=== PATIENT | male | born 1930 | race Caucasian/White ===

== ENCOUNTER 2017-03-29 14:25 | Inpatient (IN) | payer MEDICARE ==
[~2017-03-29] VITALS: Ht 176.5 cm; Wt 74.3 kg
[2017-04-01] MEDS ORDERED: PROT40TA PO (10:10)
[2017-04-01] MEDS ORDERED: VITA100064 PO (10:18)
[2017-04-01] MEDS ORDERED: ASPI81CH CHEW (10:19)
[2017-04-01] MEDS ORDERED: AMLO5TAB2 PO (10:19)
[2017-04-01] MEDS ORDERED: ATOR20TA15 PO (10:19)
[2017-04-01] MEDS ORDERED: TIMO0.5S30 LEFT EYE (10:20)
[2017-04-01] MEDS ORDERED: AMLO2.5T PO (10:20)
[2017-04-01] MEDS ORDERED: ADVA250A INH (10:21)
[2017-04-15] MEDS ORDERED: INSULIN HUMAN REGULAR 1,000 UNITS/10 ML VIAL SQ PRN (08:30)
[2017-04-15] MEDS ORDERED: METOPROLOL TARTRATE 25 MG TAB PO PRN (08:30)
[2017-04-15] MEDS ORDERED: CHLORHEXIDINE GLUCONATE 2 % 1 PACK (2 CLOTHS) TOPICAL PRN (08:30)
[2017-04-15] MEDS ORDERED: CHLORHEXIDINE GLUCONATE 4% SOLN 120 ML BTL TOPICAL SCH (08:30)
[2017-04-15] MEDS ORDERED: SODIUM CHLORIDE 0.9% IV SCH ×4 (08:30)
[2017-04-15] MEDS ORDERED: TRANEXAMIC ACID IV SCH ×4 (08:30)
[2017-04-15] MEDS ORDERED: EXPAREL PERI-ARTICULAR INJECTION (TOTAL VOL. 100 ML) P-ARTICULR SCH ×2 (08:30)
[2017-04-15] MEDS ORDERED: SODIUM CHLORID 0.9% 500 ML IV PRN (08:30)
[2017-04-15] MEDS ORDERED: POVIDONE IODINE 5% (ANTISEPSIS KIT) 4 APPLICATIONS EACH NARE PRN (08:30)
[2017-04-15] MEDS ORDERED: ceFAZolin 2 GM PREMIX 50 ML IV SCH (08:30)
[2017-04-15] MEDS ORDERED: LACTATED RINGER'S 1000 ML IV PRN (08:30)
[2017-04-15 08:58] VITALS: BP 128/65; PULSE 50; RESP 16; TEMP 97.8; O2SAT 96
[2017-04-15] MEDS ORDERED: GENTAMICIN SULFATE 80 MG/2 ML VIAL ONE (09:04)
[2017-04-15] MEDS ORDERED: FAMOTIDINE 20 MG/2 ML VIAL ONE (10:04)
[2017-04-15] MEDS ORDERED: MIDAZOLAM HCL 2 MG/2 ML VIAL ONE (10:04)
[2017-04-15] MEDS ORDERED: ACETAMINOPHEN 1000 MG/100 ML VIAL IV ONE (10:08)
[2017-04-15] MEDS ORDERED: DEXAMETHASONE SOD PHOS 4 MG/ML VIAL ONE (10:09)
[2017-04-15] MEDS ORDERED: Post-op Orders (for Pharmacy) MISC XX ONE (10:45)
[2017-04-15] MEDS ORDERED: MORPHINE SULFATE 4 MG/ML INJ IV PUSH PRN (10:45)
[2017-04-15] MEDS ORDERED: ACETAMINOPHEN/HYDROcodone 325 MG/7.5 MG TAB PO PRN (10:45)
[2017-04-15] MEDS ORDERED: SODIUM CHLORIDE 0.9% FLUSH 5 ML FLUSH IVF PRN (10:45)
[2017-04-15] MEDS ORDERED: MAGNESIUM HYDROXIDE SUSP 30 ML CUP PO PRN (10:45)
[2017-04-15] MEDS ORDERED: ONDANSETRON HCL 4 MG/2 ML VIAL IVP PRN (10:45)
[2017-04-15] MEDS ORDERED: TRANEXAMIC ACID INJ 0 MG in SODIUM CHLORIDE 0.9% INJ 100 ML IV SCH (10:45)
[2017-04-15] MEDS ORDERED: ZOLPIDEM TARTRATE 5 MG TAB PO PRN (10:45)
[2017-04-15] MEDS ORDERED: BUPIVACAINE LIPOSOME PF 1.3% 20 ML VIAL ONE (12:30)
[2017-04-15] MEDS ORDERED: DO NOT ADM ANY ANTICOAGULANT DRUGS PRN (13:30)
[2017-04-15] MEDS: KETOROLAC TROMETHAMINE 30 MG/ML (IVP) VIAL IVP SCH ×2 (13:55→18:35)
[2017-04-15] MEDS: LACTATED RINGER'S 1000 ML INJ 1,000 ML IV SCH ×2 (13:55→23:30)
[2017-04-15] MEDS ORDERED: PROPOFOL 200 MG/20 ML AMP IV ONE (14:11)
[2017-04-15] MEDS ORDERED: ONDANSETRON HCL 4 MG/2 ML VIAL IV PUSH ONE (14:12)
[2017-04-15] MEDS ORDERED: LACTATED RINGER'S 1000 ML INJ 1,000 ML IV ONE (14:12)
--- NOTE | 2017-04-15 14:27 | RADRPT ---
EXAM DATE/TIME: 04/15/2017 13:47 [place] COMPARISON: No previous studies available for comparison. INDICATIONS : Post op left knee. MEDICAL HISTORY : None. SURGICAL HISTORY : None. ENCOUNTER: Initial ACUITY: 1 day PAIN SCORE: Non-responsive. LOCATION: Left knee. FINDINGS: Two view examination of the left knee demonstrates expected postoperative features of left knee arthr oplasty. The thoracic components are in anatomic alignment. No significant acute bony fracture. Surgi bhaskar drains are in place. CONCLUSION: 1. Expected postoperative changes of left knee arthroplasty without evidence for significant acute [place] fracture. Allan Rodney MD on April 15, 2017 at 14:24 Board Certified Radiologist. This report was verified electronically.
[2017-04-15 16:00] VITALS: BP 118/65; PULSE 72; RESP 16; TEMP 95.1; O2SAT 95
[2017-04-15] MEDS ORDERED: PILL SPLITTER OTHER PRN (16:00)
--- NOTE | 2017-04-15 16:11 | PD.CONS ---
HPI Service [facility] Consult Requested By Gladys Reason for Consult Medical management Primary Care Physician Emery Hutchins M.D. Diagnoses: History of Present Illness This an 86-year-old elderly male who was admitted for elective surgery. Significant past medical history of hypertension, known ascending aortic aneurysm that is followed by feeder/folder Dr. Whyte, valvular disease, mitral regurgitation, SVT and prior ablation, prostate cancer. Patient underwent a left total knee arthroplasty. He tolerated procedure well. Pain is well- controlled. No recent chest pain, no shortness of breath. Hospitalist services are requested for medical management Review of Systems Constitutional: DENIES: Diaphoretic episodes, Fatigue, Fever, Weight gain, Weight loss, Chills, Dizziness, Change in appetite, Night Sweats Endocrine: DENIES: Heat/cold intolerance, Polydipsia, Polyuria, Polyphagia Eyes: DENIES: Blurred vision, Diplopia, Eye inflammation, Eye pain, Vision loss , Photosensitivity, Double Vision Ears, nose, mouth, throat: DENIES: Tinnitus, Hearing loss, Vertigo, Nasal discharge, Oral lesions, Throat pain, Hoarseness, Ear Pain, Running Nose, Epistaxis, Sinus Pain, Toothache, Odynophagia Respiratory: DENIES: Apneas, Cough, Snoring, Wheezing, Hemoptysis, Sputum production, Shortness of breath Cardiovascular: DENIES: Chest pain, Palpitations, Syncope, Dyspnea on Exertion , PND, Lower Extremity Edema, Orthopnea, Claudication Gastrointestinal: DENIES: Abdominal pain, Black stools, Bloody stools, Constipation, Diarrhea, Nausea, Vomiting, Difficulty Swallowing, Anorexia Genitourinary: DENIES: Sexual dysfunction, Urinary frequency, Urinary incontinence, Urgency, Hematuria, Dysuria, Nocturia, Penile Discharge, Testicular Pain, Testicular Swelling Musculoskeletal: COMPLAINS OF: Joint pain, DENIES: Muscle aches, Stiffness, Joint Swelling, Back pain, Neck pain Integumentary: DENIES: Abnormal pigmentation, Nail changes, Pruritus, Rash Hematologic/lymphatic: DENIES: Bruising, Lymphadenopathy Immunologic/allergic: DENIES: Eczema, Urticaria Neurologic: DENIES: Abnormal gait, Headache, Localized weakness, Paresthesias, Seizures, Speech Problems, Tremor, Poor Balance Psychiatric: DENIES: Anxiety, Confusion, Mood changes, Depression, Hallucinations, Agitation, Suicidal Ideation, Homicidal Ideation, Delusions Past Family Social History Past Medical History Valvular disease, known to have mitral regurgitation Ascending aneurysm, followed with ultrasounds per Dr. Whyte Osteoarthritis Hypertension Hyperlipidemia SVT, had ablation Prostate cancer, had a radical prostatectomy After prostate cancer, had Elevated PSA, was treated with radiation PUD Incontinence Past Surgical History Left meniscectomy Radical prostatectomy Prostate biopsy Reported Medications Reported Meds & Active Scripts Active Reported Advair Diskus Inh (Fluticasone-Salmeterol Inh) 250-50 Mcg/Blist Aer 1 Puff INH BID Rinse mouth after use. Timolol Opth Drops 0.5 % Soln 1 Drop LEFT EYE DAILY Amlodipine (Amlodipine Besylate) 2.5 Mg Tab 2.5 Mg PO HS Amlodipine (Amlodipine Besylate) 5 Mg Tab 5 Mg PO HS Atorvastatin (Atorvastatin Calcium) 20 Mg Tab 20 Mg PO HS Aspirin 81 Mg Chew 81 Mg CHEW DAILY Vitamin D (Cholecalciferol) 1,000 Unit Tab 1,000 Units PO DAILY Protonix (Pantoprazole Sodium) 40 Mg Tab 40 Mg PO DAILY Allergies: Coded Allergies: No Known Allergies (Unverified , 04/15/17) Active Ordered Medications Inpatient Medications Acetaminophen/ Hydrocodone Bitart ([place] 7.5-325 Mg) 2 tab Q4H PRN PO PAIN SCALE 5 TO 10; Start 04/15/17 at 10:45 Amlodipine Besylate (Norvasc) 7.5 mg HS PO ; Start 04/15/17 at 21:00 Aspirin (Ecotrin Ec) 81 mg BID PO ; Start 04/16/17 at 12:00 Atorvastatin Calcium (Lipitor) 20 mg HS PO ; Start 04/15/17 at 21:00 Budesonide/ Formoterol Fumarate (Symbicort 160-4.5 Inh) 2 puff BID INH ; Start 04/15/17 at 21:00 Bupivacaine Liposome 20 ml/ Sodium Chloride 100 ml @ 200 mls/hr ONCE P- ARTICULR Last administered on 04/15/17 11:05; Start 04/15/17 at 08:30; Stop 04/16 at 08:29 Cefazolin Sodium/ Dextrose 50 ml @ 100 mls/hr OUTCOMES ANALYST IV Last administered on 04/15/17 10:57; Start 04/15/17 at 08:30; Stop 04/15/17 at 13:25; Status DC Cefazolin Sodium/ Sodium Chloride (Ancef Inj/NS Inj) 100 ml @ 200 mls/hr Q6H IV ; Start 04/15/17 at 18:00; Stop 04/16/17 at 06:29 Chlorhexidine Gluconate (Chlorhexidine 2% Cloth) 3 pack OUTCOMES ANALYST PRN TOPICAL SEE LABEL COMMENTS; Start 04/15/17 at 08:30; Stop 04/18/17 at 08:29 Chlorhexidine Gluconate 1 applic 1 applic ONCE TOPICAL ; Start 04/15/17 at 08:30 ; Stop 04/18/17 at 08:29 Cholecalciferol (Vitamin D3) 1,000 units DAILY PO ; Start 04/16/17 at 09:00 Docusate Sodium (Colace) 100 mg BID PO ; Start 04/16/17 at 21:00 Insulin Human Regular See Protocol Table ... OUTCOMES ANALYST PRN SQ SEE PROTOCOL TABLE ; Start 04/15/17 at 08:30; Stop 04/18/17 at 08:29 IV Flush (NS Flush) 2 ml UNSCH PRN IVF FLUSH AFTER USING IV ACCESS; Start at 10:45 IV Flush 2 ml 2 ml BID IVF ; Start 04/15/17 at 21:00 Ketorolac Tromethamine (Toradol Inj) 15 mg Q6H IVP Last administered on 13:55; Start 04/15/17 at 12:00; Stop 04/17/17 at 06:01 Lactated Ringer's (Lr 1000 ml Inj) 1,000 ml @ 80 mls/hr [id number] IV Last administered on 04/15/17 13:55; Start 04/15/17 at 11:00 Magnesium Hydroxide (Milk Of Magnesia Liq) 30 ml DAILY PRN PO CONSTIPATION; Start 04/15/17 at 10:45 Metoprolol Tartrate (Lopressor) 25 mg OUTCOMES ANALYST PRN PO SEE LABEL COMMENTS; Start 04/15/17 at 08:30; Stop 04/18/17 at 08:29 Miscellaneous (Pill Splitter) 1 ea UNSCH PRN OTHER SEE LABEL COMMENTS; Start at 16:00 Miscellaneous Information ALL NURSING DEPARTME... UNSCH PRN .XX SEE LABEL COMMENTS; Start 04/15/17 at 13:30; Stop 04/16/17 at 13:29 Miscellaneous Information (Post-op Orders (for Pharmacy)) STAT ONCE XX ; Start 04/15/17 at 10:45; Stop 04/15/17 at 11:12; Status DC Morphine Sulfate (Morphine Inj) 4 mg Q3H PRN IV PUSH BREAKTHROUGH PAIN; Start 04/15/17 at 10:45 Ondansetron HCl (Zofran Inj) 4 mg Q6H PRN IVP NAUSEA OR VOMITING; Start at 10:45 Pantoprazole Sodium (Protonix) 40 mg DAILY PO ; Start 04/16/17 at 09:00 Povidone Iodine (Betadine 5% Antisepsis Kit) 1 applic OUTCOMES ANALYST PRN EACH NARE SEE LABEL COMMENTS Last administered on 04/15/17 09:00; Start 04/15/17 at 08:30; Stop 04/18/17 at 08:29 Sodium Chloride (NS 500 ml Inj) 500 ml @ 30 mls/hr [id number] PRN IV SEE LABEL COMMENTS; Start 04/15/17 at 08:30; Stop 04/18/17 at 08:29 Timolol Maleate (Timoptic 0.5% Opt Soln) 1 drop DAILY LEFT EYE ; Start 04/16/17 at 09:00 Tranexamic Acid 736 mg/Sodium Chloride 107.36 ml @ 200 mls/ hr ONCE IV Last administered on 04/15/17 14:20; Start 04/15/17 at 08:30; Stop 04/16/17 at 08:29 Zolpidem Tartrate (Ambien) 5 mg HS PRN PO SLEEP; Start 04/15/17 at 10:45 Family History Reviewed, noncontributory Social History Patient is , lives with . Retired anesthesiologist. Quit smoking 34 years ago. Occasionally drinks 2 glasses of wine with dinner. No substance abuse. Very active, plays golf Physical Exam Vital Signs Vital Signs Date Time Temp Pulse Resp B/P Pulse Ox O2 Delivery O2 Flow Rate FiO2 04/15/17 14:30 64 16 114/64 95 Room Air 04/15/17 14:15 64 16 117/62 94 Room Air 04/15/17 14:00 64 16 113/64 94 Room Air 04/15/17 13:45 60 16 113/56 94 Room Air 04/15/17 13:30 62 16 112/63 94 Room Air 04/15/17 13:27 97.3 60 16 114/57 94 Room Air 04/15/17 08:58 97.8 50 16 128/65 96 Physical Exam GENERAL: This is a well-nourished, well-developed patient, in no apparent distress. SKIN: No rashes, ecchymoses or lesions. Cool and dry. HEAD: Atraumatic. Normocephalic. No temporal or scalp tenderness. EYES: Pupils equal round and reactive. Extraocular motions intact. No scleral icterus. No injection or drainage. ENT: Nose without bleeding, purulent drainage or septal hematoma. Throat without erythema, tonsillar hypertrophy or exudate. Uvula midline. Airway patent. NECK: Trachea midline. No JVD or lymphadenopathy. Supple, nontender, no meningeal signs. CARDIOVASCULAR: S1 and S2, murmur noted, 2/6 RESPIRATORY: Clear to auscultation. Breath sounds equal bilaterally. No wheezes , rales, or rhonchi. GASTROINTESTINAL: Abdomen soft, non-tender, nondistended. No hepato-splenomegaly , or palpable masses. No guarding. MUSCULOSKELETAL: Extremities without clubbing, cyanosis, or edema. No joint tenderness, effusion, or edema noted. No calf tenderness. Negative Homans sign bilaterally. Left knee with bulky dressing. Left pedal pulse 2+. Right pedal pulse 2+. Able to dorsiflex left foot. Intact sensation to left foot. No other joint abnormality. NEUROLOGICAL: Awake, alert oriented 3. Hard of hearing. No focal deficits. Laboratory Laboratory Tests Test 04/15/17 08:57 Blood Type O NEGATIVE Antibody Screen NEGATIVE Blood Bank Comment Imaging Last Impressions Knee X-Ray 04/15/17 1035 Signed Impressions: Service Date/Time: Saturday, April 15, 2017 13:47 - CONCLUSION: 1. Expected postoperative changes of left knee arthroplasty without evidence for significant acute bony fracture. Allan Rodney MD A/P Diagnosis: (1) Primary osteoarthritis of left knee (2) Status post total left knee replacement (3) Heartburn (4) Murmur (5) HTN (hypertension) (6) Ascending aortic aneurysm (7) Valvular disease Assessment and Plan Thank you for this consultation, we will assist with medical management History of OA of left knee, status post left total knee replacement. -Continue with postoperative orthopedic care Aspirin for DVT prophylaxis per orthopedic orders. Continue with pain management Bowel regimen Physical therapy History of known aortic ascending aneurysm, it is stable. It is less than 5 cm Hypertension Valvular disease, mitral regurgitation Control blood pressure, resume Norvasc. Heartburn Continue with PPI Continue with aspirin and teds for DVT prophylaxis PPI for GI prophylaxis Repeat labs in the morning Plan of care has been discussed with the patient, attending and registered nurse. Further management of the patient will be dependent on the hospital course This patient was seen by myself and Dr. Gómez, this H&P is written on her behalf Problem Qualifiers (1) HTN (hypertension): Qualified Code: I10 - Essential hypertension Jeniffer Waters Apr 15, 2017 16:11
[2017-04-15 17:55] VITALS: O2SAT 95
[2017-04-15 20:21] VITALS: BP 134/67; PULSE 72; RESP 16; TEMP 97.2; O2SAT 95
[2017-04-15] MEDS: amLODIPine BESYLATE 5 MG TAB PO SCH (20:57)
[2017-04-15] MEDS: ATORVASTATIN 20 MG TAB PO SCH (20:57)
[2017-04-15] MEDS ORDERED: amLODIPine BESYLATE 5 MG TAB PO SCH (21:00)
[2017-04-15] MEDS: SODIUM CHLORIDE 0.9% FLUSH 5 ML FLUSH IVF SCH (21:00)
[2017-04-15] MEDS: BUDESONIDE-FORMOTEROL 160/4.5 MCG INHALER INH SCH (21:18)
--- NOTE | 2017-04-15 21:29 | HHI.FF ---
Face to Face Verification Diagnosis: (1) Status post total left knee replacement Physical Therapy Gait training Knee: Total knee, Protocol: Left, Gait training, Full weight bearing Left LE Weight Bearing: WB as tolerated Left LE Range of Motion: Active ROM (AROM, AAROM, PROM, PRE. ROM goal is 0 to 135 degrees.) Nursing Nursing: Dressing changes Dressing Changes: Daily dressing change (Remove steristrips on postop day 14.) , Coverderm/Primapore I have seen patient Dudley Weber on 04/15/17. My clinical findings support the need for the requested home health care services because: Ltd mobility - disease progression Limited ability to care for self High risk of falls I certify that my clinical findings support that this patient is homebound because: Post-op weakness Unsteady gait/balance Unsafe to leave home unassisted Mady Graham MD ([facility]) Apr 15, 2017 21:29
[2017-04-15] MEDS: ACETAMINOPHEN/HYDROcodone 325 MG/7.5 MG TAB PO PRN (21:33)
[2017-04-16] VITALS: BP 101/62; PULSE 76; RESP 16; TEMP 97.1; O2SAT 95
[2017-04-16] MEDS: KETOROLAC TROMETHAMINE 30 MG/ML (IVP) VIAL IVP SCH ×4 (00:45→17:39)
[2017-04-16 04:00] VITALS: BP 106/62; PULSE 70; RESP 17; TEMP 97.1; O2SAT 95
--- NOTE | 2017-04-16 06:08 | PD.ORT.PN ---
Subjective Post Op Day #: 1 Subjective Remarks He is doing well. He had some pain when the block effect abated but is now comfortable. Range of Motion -5 to 85 degrees. Distance Walked 2 feet with PT. Objective Vitals Vital Signs Date Time Temp Pulse Resp B/P Pulse Ox O2 Delivery O2 Flow Rate FiO2 04/16/17 04:00 97.1 70 17 106/62 95 04/16/17 00:00 97.1 76 16 101/62 95 04/15/17 20:21 97.2 72 16 134/67 95 04/15/17 17:55 95 21 04/15/17 16:00 95.1 72 16 118/65 95 04/15/17 14:30 64 16 114/64 95 Room Air 04/15/17 14:15 64 16 117/62 94 Room Air 04/15/17 14:00 64 16 113/64 94 Room Air 04/15/17 13:45 60 16 113/56 94 Room Air 04/15/17 13:30 62 16 112/63 94 Room Air 04/15/17 13:27 97.3 60 16 114/57 94 Room Air 04/15/17 08:58 97.8 50 16 128/65 96 I/O 04/15/17 04/15/17 04/15/17 04/16/17 04/16/17 04/16/17 07:00 15:00 23:00 07:00 15:00 23:00 Intake Total 50 ml 480 ml 240 ml Output Total 70 ml 150 ml Balance -20 ml 330 ml 240 ml Intake Oral 480 ml 240 ml IV Total 50 ml Output Drainage Total 70 ml 150 ml # Voids 2 3 # Bowel Movements 0 0 Imaging Knee x-ray looks good. Last 24 hours Impressions Knee X-Ray 04/15/17 1035 Signed Impressions: Service Date/Time: Saturday, April 15, 2017 13:47 - CONCLUSION: 1. Expected postoperative changes of left knee arthroplasty without evidence for significant acute bony fracture. Allan Rodney MD Objective Remarks He is resting comfortably supine in bed in the CPM. The dressing is dry and intact. The neurovascular status is intact. Assessment & Plan Ortho Post Op Day #: 1 Problem List: (1) Status post total left knee replacement Plan: Continue postop care and PT. Assessment and Plan Condition: Good. Orthopaedically stable. DVT prophylaxis: ASA, TEDs, sequentials. Discharge plans: Home with HHC, possible CIR if needed. Has appointment. Rx: [place] 7.5/325. Mady Graham MD ([facility]) Apr 16, 2017 06:08
[2017-04-16 06:26] LABS: AUTOMATED NEUTROPHIL # 8.2 TH/MM3 (1.8-7.7); BASOPHIL % 0.2 % (0.0-2.0); HEMATOCRIT 34.1 % (39.0-51.0); HEMO FLAGS DIFF FINAL; MEAN CELL VOLUME 95.6 FL (80.0-100.0); MEAN CORPUSCULAR HEMOGLOBIN 31.8 PG (27.0-34.0); MEAN CORPUSCULAR HGB CONC 33.3 % (32.0-36.0); MONO % 9.8 % (0.0-8.0); PLATELET COUNT 227 TH/MM3 (150-450); RED BLOOD COUNT 3.56 MIL/MM3 (4.50-5.90); RED CELL DISTRIBUTION WIDTH 13.8 % (11.6-17.2); WHITE BLOOD COUNT 10.3 TH/MM3 (4.0-11.0)
[2017-04-16 06:51] LABS: BICARBONATE 26.2 MEQ/L (21.0-32.0); POTASSIUM 4.4 MEQ/L (3.5-5.1)
[2017-04-16 08:00] VITALS: BP 117/58; PULSE 72; RESP 16; TEMP 97.8; O2SAT 95
[2017-04-16] MEDS: PANTOPRAZOLE SOD 40 MG DELAYED RELEASE TAB PO SCH (08:05)
[2017-04-16] MEDS: CHOLECALCIFEROL (VIT D3) 1000 UNIT TAB PO SCH (08:05)
[2017-04-16] MEDS: SODIUM CHLORIDE 0.9% FLUSH 5 ML FLUSH IVF SCH ×2 (09:00→22:23)
[2017-04-16] MEDS: BUDESONIDE-FORMOTEROL 160/4.5 MCG INHALER INH SCH ×2 (09:00→22:22)
[2017-04-16] MEDS: TIMOLOL MALEATE 0.5% OPHT SOLN 5 ML BTL LEFT EYE SCH (09:00)
[2017-04-16] MEDS: ACETAMINOPHEN/HYDROcodone 325 MG/7.5 MG TAB PO PRN ×2 (09:42→22:24)
--- NOTE | 2017-04-16 10:41 | HHI.PR ---
Subjective Subjective Remarks Sitting up in chair, pain is well controlled No shortness of breath No Chest pain Afebrile No bowel movement yet Review of Systems Constitutional Constitutional Remarks 12 point review of systems completed, negative except as noted above Vitals/Results Intake & Output 04/15/17 04/15/17 04/16/17 15:00 23:00 07:00 Intake Total 50 ml 480 ml 240 ml Output Total 70 ml 150 ml 90 ml Balance -20 ml 330 ml 150 ml Intake Oral 480 ml 240 ml IV Total 50 ml Output Drainage Total 70 ml 150 ml 90 ml # Voids 2 3 # Bowel Movements 0 0 Vital Signs Vital Signs Date Time Temp Pulse Resp B/P Pulse Ox O2 Delivery O2 Flow Rate FiO2 04/16/17 09:36 21 04/16/17 08:00 97.8 72 16 117/58 95 04/16/17 04:00 97.1 70 17 106/62 95 04/16/17 00:00 97.1 76 16 101/62 95 04/15/17 20:21 97.2 72 16 134/67 95 04/15/17 17:55 95 21 04/15/17 16:00 95.1 72 16 118/65 95 04/15/17 14:30 64 16 114/64 95 Room Air 04/15/17 14:15 64 16 117/62 94 Room Air 04/15/17 14:00 64 16 113/64 94 Room Air 04/15/17 13:45 60 16 113/56 94 Room Air 04/15/17 13:30 62 16 112/63 94 Room Air 04/15/17 13:27 97.3 60 16 114/57 94 Room Air CBC/BMP: 04/16/17 0549 04/16/17 0549 Lab Results Laboratory Tests Test 04/16/17 05:49 White Blood Count 10.3 TH/MM3 Red Blood Count 3.56 MIL/MM3 Hemoglobin 11.3 GM/DL Hematocrit 34.1 % Mean Corpuscular Volume 95.6 FL Mean Corpuscular Hemoglobin 31.8 PG Mean Corpuscular Hemoglobin 33.3 % Concent Red Cell Distribution Width 13.8 % Platelet Count 227 TH/MM3 Mean Platelet Volume 8.4 FL Neutrophils (%) (Auto) 80.0 % Lymphocytes (%) (Auto) 10.0 % Monocytes (%) (Auto) 9.8 % Eosinophils (%) (Auto) 0.0 % Basophils (%) (Auto) 0.2 % Neutrophils # (Auto) 8.2 TH/MM3 Lymphocytes # (Auto) 1.0 TH/MM3 Monocytes # (Auto) 1.0 TH/MM3 Eosinophils # (Auto) 0.0 TH/MM3 Basophils # (Auto) 0.0 TH/MM3 CBC Comment DIFF FINAL Differential Comment Sodium Level 140 MEQ/L Potassium Level 4.4 MEQ/L Chloride Level 107 MEQ/L Carbon Dioxide Level 26.2 MEQ/L Anion Gap 7 MEQ/L Blood Urea Nitrogen 24 MG/DL Creatinine 1.04 MG/DL Estimat Glomerular Filtration 68 ML/MIN Rate Random Glucose 117 MG/DL Calcium Level 8.5 MG/DL Physical Exam General General Appearance: Well Developed, Well Nourished, No Acute Distress, Comfortable Eyes Eye Exam: Pupils Equal, Pupils Reactive Ears & Nose Ears & Nose Exam: Nasal Mucosa Gates Throat Throat Exam: Oral Mucosa Gates & Moist Neck Neck Exam: Neck Supple, Trachea Midline Pulmonary Resp Exam: Breath Sounds Equal, No Distress Cardiology CV Exam: Regular, Murmur Gastrointestinal/Abdomen GI Exam: Soft, Non-Tender, Bowel Sounds Present, Non-Distended Musculoskeletal MS Exam: Joints Intact MS Remarks Left leg with bulky dressing intact Integumentary Skin Exam: Warm, Dry Extremeties Extremities Exam: Pedal Pulses Palpable, Trace Edema Neurologic Neuro Exam: Alert, Awake, Oriented, Speech Clear, Moving All Extremities, No Focal Deficits Psychiatric Psych Exam: Appropriate Responses VTE Prophylaxis VTE Prophylaxis Device: TEDs VTE Remarks Aspirin Assessment/Plan Problem List: (1) Status post total left knee replacement (2) Heartburn (3) Murmur (4) HTN (hypertension) (5) Ascending aortic aneurysm (6) Valvular disease (7) Primary osteoarthritis of left knee Assessment/Plan History of OA of left knee, status post left total knee replacement. -Continue with postoperative orthopedic care Aspirin for DVT prophylaxis per orthopedic orders. Continue with pain management Bowel regimen Physical therapy History of known aortic ascending aneurysm, it is stable. It is less than 5 cm Hypertension Valvular disease, mitral regurgitation Control blood pressure, continue Norvasc. Heartburn Continue with PPI Continue with aspirin and teds for DVT prophylaxis PPI for GI prophylaxis Labs reviewed, H&H stable Discussed with Dr. Gómez Discussed with RN Discussed with patient This patient was seen by myself and Dr. Gómez, this note is written on her behalf Problem Qualifiers (1) HTN (hypertension): Qualified Code: I10 - Essential hypertension Jeniffer Waters Apr 16, 2017 10:41
--- NOTE | 2017-04-16 10:52 | MP ---
cc: Naren HADDAD. DATE OF SURGERY 04/15/2017 PREOPERATIVE DIAGNOSIS Primary osteoarthritis left knee. POSTOPERATIVE DIAGNOSIS Primary osteoarthritis left knee. OPERATION PERFORMED Left total knee arthroplasty with Larwill Triathlon prosthesis. SURGEON Mady Haddad MD ANESTHESIA Spinal with supplemental local. INDICATIONS AND FINDINGS This 86-year-old man has had problems with his left knee for several years. He had a medial meniscectomy many years ago. Subsequently he has found that he has had increasing pain with weightbearing and decreasing ambulation tolerances. He has difficulty ascending and descending stairs, standing from a seated position, feeling of giving-way and inability to fully extend his knee. He cannot take anti-inflammatory agents because of peptic ulcer disease. He has not responded to analgesics, activity modification, exercise and ambulatory aids. FINDINGS Physical findings showed genu varum with medial laxity. Osteophytes and crepitation on range of motion. The imaging studies showed severe osteoarthritis on x-ray going down to [id number] in the medial compartment with eburnation and osteophytes particularly in the medial compartment with some patellofemoral and lateral change. Operative findings showed findings consistent with the radiographic findings with there being loss of articular cartilage to [id number] with subchondral sclerosis in the medial compartment. There were patellofemoral and lateral osteophytes as well as degenerative change in both sites. PROSTHESIS USED A Larwill Triathlon prosthesis. The femoral component was a size six left cruciate-retaining component. The tibial baseplate was a Tritanium baseplate size 7. The spacer was a size 7 x 9-mm cruciate-retaining. The patella was a Titanium backed patella size 38-mm. PROCEDURE The patient was brought to the operating room and a spinal anesthetic was administered. The anesthesiologist indicated that he would to an adductor canal block at the conclusion of the procedure. The pneumatic tourniquet was applied to the left thigh. The limb was then prepped with alcohol, Hibiclens and Chloraprep and draped in the usual manner with the knee draped free. An appropriate time-out procedure was carried out. An anterior incision was made from three fingerbreadths above this the superior medial pole of the patella down to the tibial tubercle. Care was taken to leave an adequate skin bridge from his previous medial incision. The incision was then deepened through the subcutaneous tissues to the retinacular structures which were exposed medially and laterally. The medial retinacular incision was made from the superior medial pole of the patella down to the tibial tubercle and up into the quadriceps tendon splitting it longitudinally in the medial one-third. The patella was reflected. Medial and lateral dissection was carried out. Hemostasis was achieved with electrocautery throughout the procedure. The anterior cruciate ligament was excised. The lateral meniscectomy was initiated since he had previously had a subtotal medial meniscectomy. The posterior surface of the patella was exposed. Patella clamps were used to hold this. The posterior surface of the patella was excised using the oscillating saw. A patellar protector was applied. The patella was slipped into the lateral gutter. The femoral drill hole was made in the distal end of the femur and the tibial drill hole in the proximal end of the tibia. The distal femoral cutting guide and jig were assembled for a 5-degrees, 8-mm cut. The cutting block was stabilized with pins after positioning this appropriately. The jig was removed. The distal femoral cut was completed with the oscillating saw. Using epicondylar axis and Whitesides line as guides, the distal femoral sizing guide was positioned in place. Drill holes were made. The size was determined to be a size 6 femur. The distal femoral four-in-one cutting block was positioned in place and stabilized with pins. Anterior and posterior cuts were made followed by posterior and anterior chamfer cuts. Osteophytes were trimmed. A bone plug was placed in the distal end of the femur. Attention was directed to the tibia. The meniscectomies were completed. The proximal tibia was exposed. Proximal tibial cutting guide and jig were then assembled with an intermedullary guide initially. This was then positioned in place and the proximal tibial cutting guide was stabilized with pins. The jig was removed. The proximal tibial cut was completed with the oscillating saw. The tibial baseplate trial was positioned in place and appeared to be appropriate for a size 7. This was stabilized with pins. The 9-mm spacer was inserted. The femoral component was impacted into place and seated. The patella trial drill holes were made. The 38-mm patella trial was positioned in place. The knee was taken through a range of motion. There was some instability of the femur when the knee came to full flexion. It was determined to remove a little bit more posterior tibia. The trial implants were removed. The proximal tibial cutting guide was then positioned with slightly more posterior slope than previously using the extramedullary guide. The cut was then made with the oscillating saw. Further osteophytes were removed. With the proximal tibial cut made, the tibial baseplate was positioned in place and stabilized with pins. The spacer was inserted. The femoral component was inserted. The patella component was inserted. The knee was taken through a range of motion which was easily 250 degrees with better stability of the femur. The femoral component drill holes were made followed by removal of the component. The patella trial was removed. The tibial spacer was removed. The tibial punch was impacted through its guide. The tibial drill guide was then positioned in place. Local anesthesia was administered throughout the knee with Exparel. The tibial component was then impacted into place and seated appropriately. This appeared to be more anterior than had been expected, therefore this was removed. The tibial baseplate trial was positioned back in place and held with pins. The punch was impacted through its guide after using the saw to accentuate the cut. The drill guide was positioned in place and drill holes made again. The proximal tibia was then irrigated well with antibiotic solution. It was determined that cement would be used for the tibia at this time. The tibial cement was inserted using the cement gun to pressurize the cement. The tibial baseplate was impacted in placed and seated appropriately. Excess cement was trimmed. The tibial spacer was inserted. Using a second batch of cement the femoral component was cemented into place and seated appropriately. Excess cement was trimmed. The patella was inserted using the Tritanium patella. This seated appropriately. Drains were brought out the superior and lateral aspect of the suprapatellar pouch. The remainder of the Exparel was injected throughout the knee. The wound was then closed in layers using 0 Vicryl interrupted [id number] sutures for retinacular structures and fascial structures, 2-0 Vicryl interrupted simple sutures with buried knots for the subcutaneous tissues and 4-0 Monocryl continuous subcuticular closure for the skin. The wound was dressed with Steri-Strips followed by dry dressing, sterile Sof-Rol, cooling pad, further sterile Sof-Rol and Neville bandage from base of the toes to mid-thigh. The patient is to receive an adductor canal block prior to transfer to the recovery room. COUNTS Correct. SPECIMENS None. ESTIMATED BLOOD LOSS 300 mL. MD MARÍA Quan/GARRETT /1:06 PM /10:25 AM
[2017-04-16 12:00] VITALS: BP 113/53; PULSE 60; RESP 18; TEMP 96; O2SAT 98
[2017-04-16] MEDS: ASPIRIN EC 81 MG TABEC PO SCH ×2 (12:00→22:22)
[2017-04-16] MEDS: LACTATED RINGER'S 1000 ML INJ 1,000 ML IV SCH (12:00)
[2017-04-16 16:00] VITALS: BP 104/60; PULSE 58; RESP 18; TEMP 95.4; O2SAT 95
[2017-04-16 20:40] VITALS: BP 103/60; PULSE 58; RESP 17; TEMP 97.5; O2SAT 97
[2017-04-16] MEDS: DOCUSATE SODIUM 100 MG CAP PO SCH (22:21)
[2017-04-16] MEDS: amLODIPine BESYLATE 5 MG TAB PO SCH (22:21)
[2017-04-16] MEDS: ATORVASTATIN 20 MG TAB PO SCH (22:22)
[2017-04-17 00:30] VITALS: BP 108/54; PULSE 63; RESP 16; TEMP 97.6; O2SAT 93
[2017-04-17] MEDS: LACTATED RINGER'S 1000 ML INJ 1,000 ML IV SCH (00:30)
[2017-04-17] MEDS: KETOROLAC TROMETHAMINE 30 MG/ML (IVP) VIAL IVP SCH ×2 (00:34→05:47)
[2017-04-17 04:30] VITALS: BP 101/58; PULSE 58; RESP 17; TEMP 97; O2SAT 93
--- NOTE | 2017-04-17 06:26 | PD.ORT.PN ---
Subjective Post Op Day #: 2 Subjective Remarks He is doing well. He had some pain when the block effect abated. There is more pain today than yesterday. He wants to go home. Range of Motion 0 to 102 degrees. Distance Walked 200 feet in AM, 80 feet in PM. Objective Vitals Vital Signs Date Time Temp Pulse Resp B/P Pulse Ox O2 Delivery O2 Flow Rate FiO2 04/17/17 04:30 97.0 58 17 101/58 93 04/17/17 00:30 97.6 63 16 108/54 93 04/16/17 20:40 97.5 58 17 103/60 97 04/16/17 16:00 95.4 58 18 104/60 95 04/16/17 12:00 96.0 60 18 113/53 98 04/16/17 09:36 21 04/16/17 08:00 97.8 72 16 117/58 95 I/O 04/16/17 04/16/17 04/16/17 04/17/17 04/17/17 04/17/17 07:00 15:00 23:00 07:00 15:00 23:00 Intake Total 240 ml 960 ml 480 ml Output Total 90 ml 90 ml Balance 150 ml 960 ml 390 ml Intake Oral 240 ml 960 ml 480 ml Output Drainage Total 90 ml 90 ml # Voids 3 4 1 # Bowel Movements 0 0 0 Result Diagram: 04/16/17 0549 04/16/17 0549 Imaging Knee x-ray looks good. Last 24 hours Impressions Knee X-Ray 04/15/17 1035 Signed Impressions: Service Date/Time: Saturday, April 15, 2017 13:47 - CONCLUSION: 1. Expected postoperative changes of left knee arthroplasty without evidence for significant acute bony fracture. Allan Rodney MD Objective Remarks He is resting comfortably supine in bed in the CPM. The dressing is dry and intact. The neurovascular status is intact. Assessment & Plan Ortho Post Op Day #: 2 Problem List: (1) Status post total left knee replacement Plan: Continue postop care and PT. Assessment and Plan Condition: Good. Orthopaedically stable. DVT prophylaxis: ASA, TEDs, sequentials. Discharge plans: Home with [facility]. Has appointment. Rx: [place] 7.5/325. Mady Graham MD (Charles) Apr 17, 2017 06:26
[2017-04-17] MEDS ORDERED: HYDR-3580 PO (06:37)
[2017-04-17] MEDS ORDERED: ASPI-99 PO (06:37)
[2017-04-17 07:09] LABS: HEMATOCRIT 32.6 % (39.0-51.0); REVIEW FLAG FINAL
[2017-04-17 08:00] VITALS: BP 114/59; PULSE 60; RESP 18; TEMP 96.7; O2SAT 94
[2017-04-17] MEDS: BUDESONIDE-FORMOTEROL 160/4.5 MCG INHALER INH SCH (09:22)
[2017-04-17] MEDS: ASPIRIN EC 81 MG TABEC PO SCH (09:23)
[2017-04-17] MEDS: CHOLECALCIFEROL (VIT D3) 1000 UNIT TAB PO SCH (09:23)
[2017-04-17] MEDS: DOCUSATE SODIUM 100 MG CAP PO SCH (09:23)
[2017-04-17] MEDS: SODIUM CHLORIDE 0.9% FLUSH 5 ML FLUSH IVF SCH (09:23)
[2017-04-17] MEDS: PANTOPRAZOLE SOD 40 MG DELAYED RELEASE TAB PO SCH (09:23)
[2017-04-17] MEDS: ACETAMINOPHEN/HYDROcodone 325 MG/7.5 MG TAB PO PRN (09:23)
[2017-04-17] MEDS: TIMOLOL MALEATE 0.5% OPHT SOLN 5 ML BTL LEFT EYE SCH (10:09)
[2017-04-17 10:37] VITALS: O2SAT 95
--- NOTE | 2017-04-17 11:06 | HHI.PR ---
Subjective Subjective Remarks up in chair bowel regimen discussed No BM yet alert, Review of Systems Constitutional Constitutional: Weakness (mild, SP lt. knee surgery) Vitals/Results Intake & Output 04/16/17 04/16/17 04/17/17 15:00 23:00 07:00 Intake Total 960 ml 480 ml 240 ml Output Total 90 ml Balance 960 ml 390 ml 240 ml Intake Oral 960 ml 480 ml 240 ml Output Drainage Total 90 ml # Voids 4 1 2 # Bowel Movements 0 0 0 Vital Signs Vital Signs Date Time Temp Pulse Resp B/P Pulse Ox O2 Delivery O2 Flow Rate FiO2 04/17/17 10:37 95 21 04/17/17 08:00 96.7 60 18 114/59 94 04/17/17 04:30 97.0 58 17 101/58 93 04/17/17 00:30 97.6 63 16 108/54 93 04/16/17 20:40 97.5 58 17 103/60 97 04/16/17 16:00 95.4 58 18 104/60 95 04/16/17 12:00 96.0 60 18 113/53 98 CBC/BMP: 04/17/17 0631 04/16/17 0549 Lab Results Laboratory Tests Test 04/17/17 06:31 Hemoglobin 11.2 GM/DL Hematocrit 32.6 % Imaging Remarks Last Impressions Knee X-Ray 04/15/17 1035 Signed Impressions: Service Date/Time: Saturday, April 15, 2017 13:47 - CONCLUSION: 1. Expected postoperative changes of left knee arthroplasty without evidence for significant acute bony fracture. Allan Rodney MD Current Medications Administered Medications Medications (Trade) Dose Ordered Sig/Malcolm Route PRN Reason Start Time Stop Time Status Last Admin Dose Admin Lactated Ringer's 1,000 ml @ 30 mls/hr Q24H PRN IV SEE LABEL COMMENTS 04/15/17 08:30 04/18/17 08:29 04/15/17 08:50 Lactated Ringer's (Lr 1000 ml Inj) 1,000 ml @ 80 mls/hr [id number] IV 04/15/17 11:00 04/15/17 13:55 IV Flush (NS Flush) 2 ml BID IVF 04/15/17 21:00 04/17/17 09:23 Acetaminophen/ Hydrocodone Bitart ([place] 7.5-325 Mg) 1 tab Q4H PRN PO PAIN LESS THAN 5 ON SCALE 04/15/17 10:45 04/17/17 09:23 Docusate Sodium (Colace) 100 mg BID PO 04/16/17 21:00 04/17/17 09:23 Magnesium Hydroxide (Milk Of Magnesia Liq) 30 ml DAILY PRN PO CONSTIPATION 04/15/17 10:45 04/17/17 09:22 Aspirin (Ecotrin Ec) 81 mg BID PO 04/16/17 12:00 04/17/17 09:23 Amlodipine Besylate (Norvasc) 7.5 mg HS PO 04/15/17 21:00 04/16/17 22:21 Atorvastatin Calcium (Lipitor) 20 mg HS PO 04/15/17 21:00 04/16/17 22:22 Cholecalciferol (Vitamin D3) 1,000 units DAILY PO 04/16/17 09:00 04/17/17 09:23 Pantoprazole Sodium (Protonix) 40 mg DAILY PO 04/16/17 09:00 04/17/17 09:23 Timolol Maleate (Timoptic 0.5% Opth Soln) 1 drop DAILY LEFT EYE 04/16/17 09:00 04/17/17 10:09 Budesonide/ Formoterol Fumarate (Symbicort 160-4.5 Inh) 2 puff BID INH 04/15/17 21:00 04/17/17 09:22 Physical Exam General General Appearance: Well Developed, Well Nourished, No Acute Distress, Comfortable Eyes Eye Exam: Pupils Equal, Pupils Reactive Ears & Nose Ears & Nose Exam: Nasal Mucosa Sallis Throat Throat Exam: Oral Mucosa Sallis & Moist Neck Neck Exam: Neck Supple, Trachea Midline Pulmonary Resp Exam: Breath Sounds Equal, No Distress Cardiology CV Exam: Regular, Murmur Gastrointestinal/Abdomen GI Exam: Soft, Non-Tender, Bowel Sounds Present, Non-Distended Musculoskeletal MS Exam: Joints Intact Integumentary Skin Exam: Warm, Dry Extremeties Extremities Exam: Pedal Pulses Palpable, Trace Edema Neurologic Neuro Exam: Alert, Awake, Oriented, Speech Clear, Moving All Extremities, No Focal Deficits Psychiatric Psych Exam: Appropriate Responses VTE Prophylaxis VTE Prophylaxis Device: TEDs Assessment/Plan Problem List: (1) Status post total left knee replacement (2) Heartburn (3) Murmur (4) HTN (hypertension) (5) Ascending aortic aneurysm (6) Valvular disease (7) Primary osteoarthritis of left knee Assessment/Plan Vital signs reviewed, normal trends patient's afebrile Labs reviewed hemoglobin currently stable 11.2, mild dehydration will encourage by mouth fluids Monitor bowel regimen History of OA of left knee, status post left total knee replacement. postoperative orthopedic care and pain management per orthopedic Bowel regimen and physical therapy History of known aortic ascending aneurysm, stable and remains at less than 5 Hypertension, medical management Valvular disease, mitral regurgitation, medical management Continue with aspirin and teds for DVT prophylaxis PPI for GI prophylaxis, history of GERD discussed bowel regimen. states he took meds and prefers to go home and monitor. Discussed with RN Discussed with patient Problem Qualifiers (1) HTN (hypertension): Qualified Code: I10 - Essential hypertension Elle Garcia Apr 17, 2017 11:06
== END 2017-04-17 11:41 | disposition home health service (06) | DRG 470 ==
LOC: HSDI 04-15 07:50 → N06A 04-15 15:17
PROVIDERS: ADMIT Orthopaedic Surgery; ATTEND Orthopaedic Surgery
PROC: 00HU33Z Insertion of Infusion Device into Spinal Canal, Percutaneous Approach (ICD-10-PCS; 2017-04-15)
PROC: 3E0R3CZ (ICD-10-PCS; 2017-04-15)
PROC: 0SRD0J9 Replacement of Left Knee Joint with Synthetic Substitute, Cemented, Open Approach (ICD-10-PCS; principal; 2017-04-15 10:30)
DX: M17.12 Unilateral primary osteoarthritis, left knee (principal); I71.2 Thoracic aortic aneurysm, without rupture; E86.0 Dehydration; I34.0 Nonrheumatic mitral (valve) insufficiency; M21.162 Varus deformity, not elsewhere classified, left knee; I10 Essential (primary) hypertension; E78.5 Hyperlipidemia, unspecified; R32 Unspecified urinary incontinence; H91.90 Unspecified hearing loss, unspecified ear; K21.9 Gastro-esophageal reflux disease without esophagitis; Z87.11 Personal history of peptic ulcer disease; Z85.46 Personal history of malignant neoplasm of prostate; Z92.3 Personal history of irradiation; Z87.891 Personal history of nicotine dependence
CPT/HCPCS: 73560; 80048; 85014; 85018; 85025; 86850; 86900; 86901; 94150; C1776; C9290; J0131; J0690; J1100; J1580; J1885; J2250; J2405; J3010; J7120

== ENCOUNTER → 2017-04-01 | Outpatient (CLI) | payer MEDICARE ==
[~2017-04-01] MED LIST: ADVA250A INH; AMLO2.5T PO; AMLO5TAB2 PO; ASPI-99 PO; ASPI81CH CHEW; ATOR20TA15 PO; HYDR-3580 PO; PROT40TA PO; TIMO0.5S30 LEFT EYE; VITA100064 PO
[2017-04-01 09:42] LABS: HEMATOCRIT 40.5 % (39.0-51.0); MEAN CELL VOLUME 95.3 FL (80.0-100.0); MEAN CORPUSCULAR HEMOGLOBIN 32.5 PG (27.0-34.0); MEAN CORPUSCULAR HGB CONC 34.1 % (32.0-36.0); PLATELET COUNT 270 TH/MM3 (150-450); RED BLOOD COUNT 4.25 MIL/MM3 (4.50-5.90); RED CELL DISTRIBUTION WIDTH 13.6 % (11.6-17.2); REVIEW FLAG FINAL; WHITE BLOOD COUNT 7.1 TH/MM3 (4.0-11.0)
[2017-04-01 09:48] LABS: BLOOD, URINE NEG (NEG); COMMENT (UR) CULT NOT INDICATED; CULTURE IF INDICATED CULT NOT INDICATED; GLUCOSE,URINE NEG (NEG); KETONE, URINE NEG (NEG); MUCUS URINE FEW /lpf (OCC); NITRITE,URINE NEG (NEG); URINE COLOR YELLOW (YELLW/STRAW)
[2017-04-01 10:07] LABS: APTT (PATIENT) 34.1 SEC (24.3-30.1); PROTHROMBIN TIME - PATIENT 10.9 SEC (9.8-11.6)
[2017-04-01 10:11] LABS: BICARBONATE 28.9 MEQ/L (21.0-32.0); POTASSIUM 4.3 MEQ/L (3.5-5.1)
== END ==
LOC: CPRE 08:44
PROVIDERS: ATTEND Orthopaedic Surgery
DX: Z01.812 Encounter for preprocedural laboratory examination (principal); M17.12 Unilateral primary osteoarthritis, left knee; M79.609 Pain in unspecified limb; I10 Essential (primary) hypertension
CPT/HCPCS: 36415; 80048; 81001; 85027; 85610; 85730

== ENCOUNTER → 2017-09-25 | Day surgery (SDC) | payer MEDICARE ==
[~2017-09-25] MED LIST changes: +ACETAMINOPHEN 1000 MG/100 ML 100 ML IV ONE; +ASPI-516 CHEW; -ASPI-99 PO; +ASPI1TAB56 PO; -ASPI81CH CHEW; +KETOROLAC TROMETHAMINE 30 MG/ML (IVP) VIAL IV PUSH ONE; +LACTATED RINGER'S 1000 ML INJ 1,000 ML ONE; +LIDOCAINE 1%/EPINEPHrine 1:100,000 SOLN 50 ML VIAL ONE; +ONDANSETRON HCL 4 MG/2 ML VIAL IV PUSH ONE; +PROPOFOL 200 MG/20 ML AMP IV ONE; +SODIUM CHLOR 0.9% 250 ML INJ 250 ML IV ONE; +VANCOMYCIN HCL 1000 MG VIAL ONE; +ceFAZolin INJ 1,000 MG VIAL ONE
--- NOTE | 2017-09-26 08:49 | MP ---
cc: ORESTES PINEDA M.D. DATE OF SURGERY 09/25/2017 PROCEDURE Right inguinal hernia repair with mesh. PREOPERATIVE DIAGNOSIS Symptomatic reducible right inguinal hernia. POSTOPERATIVE DIAGNOSIS Symptomatic, indirect right inguinal hernia. ANESTHESIA LMA. SURGEON MD Chandler [employer] SUPER[employer]OR Iliana COKER ESTIMATED BLOOD LOSS 10 mL. FLUIDS 800 mL crystalloids. COMPLICATIONS None. DRAINS None. SPECIMEN None. PROCEDURE IN DETAIL The patient was seen in the holding area and the right groin marked by the undersigned and confirmed by the patient. The patient was taken to the operating room and placed on the operating table in supine position. After an adequate level of laryngeal mask anesthesia was instituted, the right groin was shaved, prepped and draped. Time-out was taken confirming the correct patient site and procedure to be performed. The presence of the nurse practitioner was required for retraction, exposure and resection of important structures. The nurse practitioner was present throughout the entirety of the procedure. The skin and subcutaneous tissue was infiltrated with local anesthetic and a slightly oblique incision was made in the right groin. Dissection was carried down to the external oblique fascia where further subfascial injections were made with local anesthetic. The external oblique fascia was opened in the direction of its fibers and the spermatic cord structures brought up on a Naldo drain. Dissection was carried back to the internal ring. The spermatic cord structures were then explored and a hemostat used to identify the hernia sac. This was dissected free from the surrounding spermatic cord structures and dissected back to the level of the internal ring. The sac was then inverted into the abdominal cavity and when this had been completed a 3 x 6-inch piece of Atrium mesh was brought up and placed into the defect. The mesh was transfixed to the pubic tubercle with 2-0 Prolene suture which was then run along the shelving edge of the inguinal ligament to complete the lateral edge of the repair. The mesh was slit longitudinally to allow for egress of the cord structures and then interrupted 2-0 Prolene sutures were placed along the transversalis fascia to complete the medial edge of the repair. The ilioinguinal nerve was identified and left as intact as possible within its beaver tissues to minimize dissection. Care was taken to place no sutures near this nerve. The medial leaf of mesh was then brought over the lateral leaf of mesh and transfixed down to the inguinal ligament to create a new internal ring. An additional Prolene suture was placed medially to close the ring down to minimize the risk of hernia recurrence. When this was completed and hemostasis was assured, the remaining local anesthetic was injected into the transversalis fascia and subcutaneous tissues. The external oblique fascia was then closed with a running 3-0 Vicryl suture, taking care to exclude the underlying tissues and not to include the iliohypogastric nerve in the closure. The wound was then closed with interrupted 3-0 Vicryl suture and the skin closed with 5-0 PDS in a running subcuticular fashion. The wound was dressed with Telfa and Tegaderm and the patient was taken back to the recovery room in stable condition. MD CYNTHIA Kern/SSB /11:35 PM /8:35 AM
== END | disposition home or self-care (01) ==
LOC: ESDC 09:29
PROVIDERS: ATTEND Surgery Trauma Surgery
DX: K40.90 Unilateral inguinal hernia, without obstruction or gangrene, not specified as recurrent (principal)
CPT/HCPCS: 00830; 49505; C1781; J0131; J0690; J1885; J2405; J3010; J3370; J7050; J7120